=== PATIENT | male | born 1975 | race Caucasian/White ===

== ENCOUNTER 2023-12-27 10:29 | Emergency (ER) | payer MEDICAID, OTHER ==
[~2023-12-27] VITALS: Ht 157.5 cm; Wt 60.0 kg
[2023-12-27 10:58] VITALS: O2SAT 99
[2023-12-27] MEDS: KETOROLAC 30MG/ML VIAL IM STA (11:19)
[2023-12-27] MEDS: ACETAMINOPHEN 325MG TABLET PO STA (11:19)
[2023-12-27] MEDS ORDERED: NAPR-681 PO (11:53)
[2023-12-27 12:46] VITALS: BP 124/69; PULSE 62; RESP 18; TEMP 36.89184; O2SAT 99
== END 2023-12-27 12:47 | disposition home or self-care (01) ==
LOC: ER 10:36
DX: M54.42 Lumbago with sciatica, left side (principal)
CPT/HCPCS: 99283; 96372; J1885